=== PATIENT | male | born 1970 | race Caucasian/White ===

== ENCOUNTER → 2017-07-28 | Outpatient (CLI) | payer OTHER ==
--- NOTE | 2017-07-29 15:32 | EEG PRO FEE REPORT ---
EEG INTERPRETATION PATIENT NAME: CARLY HOWARD ROOM#: ORDER#: [id number] DATE OF STUDY: 07/28/2017 : 1970 REFERRING MD: LEONARDO THORNTON M.D. DIAGNOSIS: Amnesia REPORT The background activity consists of 8-9 Hz alpha of medium voltage. No clear focal slowing, amplitude asymmetry, or epileptiform discharges are noted. As the patient becomes drowsy the record attenuates somewhat no other ictal activity is seen. IMPRESSION Normal wake and drowsy EEG. INTERPRETING PHYSICIAN: RAYNE RENAE M.D. /: MTEFFT TT: 1501 ID: [id number] /: [id number] TD: [id number] JOB: [id number] cc:Cherrie ALFARO M.D. > MTDD
== END ==
LOC: NEURO 08:17
PROVIDERS: ATTEND Pediatrics
DX: R47.01 Aphasia (principal); R41.3 Other amnesia
CPT/HCPCS: 95819

== ENCOUNTER → 2019-02-04 | Outpatient (CLI) | payer MEDICARE, OTHER ==
[2019-02-04 13:24] LABS: ABSOLUTE BASOPHILS # (AUTO) 0.1 10^3/uL (0.0-0.2); ABSOLUTE EOSINOPHILS # (AUTO) 0.1 10^3/uL (0.0-0.6); ABSOLUTE LYMPHOCYTES (AUTO) 1.9 10^3/uL (0.5-4.7); ABSOLUTE MONOCYTES (AUTO) 0.5 10^3/uL (0.1-1.4); ABSOLUTE NEUT (AUTO) 5.2 10^3/uL (1.7-8.2); BASOPHILS % (AUTO) 0.8 % (0-2); EOSINOPHILS % (AUTO) 1.5 % (0-6); HEMATOCRIT 46.9 % (37.9-51.0); HEMOGLOBIN 15.5 g/dL (13.5-17.0); LYMPHOCYTES % (AUTO) 24.6 % (13-45); MEAN CORPUSCULAR HEMOGLOBIN 30.3 pg (27.0-33.4); MEAN CORPUSCULAR HGB CONC 33.1 g/dL (32.0-36.0); MEAN CORPUSCULAR VOLUME 91 fl (80-97); MONOCYTES % (AUTO) 5.9 % (3-13); PLATELET COUNT 205 10^3/uL (150-450); RED BLOOD COUNT 5.13 10^6/uL (4.35-5.55); RED CELL DISTRIBUTION WIDTH 13.3 % (11.5-14.0); SEGMENTED NEUTROPHILS % (AUTO) 67.2 % (42-78); TOTAL CELLS COUNTED % (AUTO) 100 %; WHITE BLOOD COUNT 7.7 10^3/uL (4.0-10.5)
[2019-02-04 14:01] LABS: ANION GAP 12 (5-19); BLOOD UREA NITROGEN 13 mg/dL (7-20); CALCIUM 9.7 mg/dL (8.4-10.2); CARBON DIOXIDE 27 mmol/L (22-30); CHLORIDE 101 mmol/L (98-107); GLUCOSE 103 mg/dL (75-110); POTASSIUM 4.6 mmol/L (3.6-5.0)
== END ==
LOC: OD 11:46
PROVIDERS: ATTEND Specialist
DX: M25.562 Pain in left knee (principal)
CPT/HCPCS: 36415; 80048; 85025